=== PATIENT | male | born 1980 | race Two or more races ===

== ENCOUNTER → 2024-08-21 | Emergency (ER) | payer OTHER ==
[~2024-08-21] VITALS: Ht 185.4 cm; Wt 106.6 kg
[~2024-08-21] MED LIST: AMOX1TAB5 PO; MEDROLPACK PO; PEPCID AC20 MG PO; SINGULAIR10 MG PO
== END | disposition home or self-care (01) ==
LOC: ER 09:17
DX: J32.9 Chronic sinusitis, unspecified (principal)